=== PATIENT | male | born 1960 | race Caucasian/White ===

== ENCOUNTER 2025-01-06 17:57 | Emergency (ER) | payer MEDICARE ==
[2025-01-06 18:24] VITALS: BP 149/90; PULSE 78; RESP 20; TEMP 98.4; O2SAT 98
--- NOTE | 2025-01-06 18:40 | ERPHSYRPT ---
- History of Present Illness Time Seen by Provider: 01/06/25 18:36 Source: police Patient Subjective Stated Complaint: patient was picked up by PD for driving Triage Nursing Assessment: patient brought be law enforcement to get medically cleared, patient is alert and oriented x2 patient knows we are in a hospital but unsure of what day of the week it is and is confused whether he is in [place] or [place]. pupils [place], face is flushed , patient is unsteady ga it. Physician History: Brought by police department for medical clearance, the patient was pulled over by police and Breathalyzer had revealed an alcohol around 300 Timing/Duration: today Severity: moderate Modifying Factors: Improves With: medication Home Medications: Apixaban [Eliquis] 1 tab PO BID 01/06/25 [History] Primidone 50 MG [Mysoline 50Mg] 50 mg PO DAILY 01/06/25 [History] Hx Tetanus, Diphtheria Vaccination/Date Given: (unknown) Hx Influenza Vaccination/Date Given: (unknown) Hx Pneumococcal Vaccination/Date Given: (unknown) Immunizations Up to Date: (unknown) Travel Risk - International Travel Have you traveled outside of the country in past 3 weeks: No - Emerging Infectious Disease Are you exhibiting symptoms associated with any current EIDs: No - Past Medical History Pertinent Past Medical History: Yes Neurological History: No Pertinent History Cardiac History: Deep Vein Thrombosis, High Cholesterol Respiratory History: No Pertinent History, Pulmonary Embolism Endocrine Medical History: No Pertinent History Other Medical History: 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 HX OF MOUTH CANCER (RADIATION ~4 YEARS AGO) - Past Surgical History Past Surgical History: (unknown) - Social History Smoking Status: Former smoker Drug Use: none - Social Determinants of Health Will the patient participate in the screening: Declined to provide - Nursing Vital Signs Nursing Vital Signs: Initial Vital Signs Temperature 98.4 F 01/06/25 18:19 Pulse Rate 78 01/06/25 18:19 Respiratory Rate 20 01/06/25 18:19 Blood Pressure 149/90 01/06/25 18:19 O2 Sat by Pulse Oximetry 98 01/06/25 18:19 Pain Scale Pain Intensity 9 - Physical Exam General Appearance: no apparent distress, alert Eye Exam: PERRL/EOMI, eyes nml inspection Ears, Nose, Throat Exam: normal ENT inspection, TMs normal, pharynx normal, moist mucous membranes Neck Exam: normal inspection, non-tender, supple Respiratory Exam: normal breath sounds, lungs clear Cardiovascular Exam: regular rate/rhythm Gastrointestinal/Abdomen Exam: soft, normal bowel sounds Neurologic Exam: alert, cooperative, fund director II-XII nml as tested Skin Exam: normal color, warm, dry SpO2: 98 - Progress Progress Note: 01/06/25 18:38 Examination is consistent with his intoxication, he is medically cleared to go with police - Departure Departure Disposition: Care Home/Retirement Clinical Impression: Alcohol intoxication Qualifiers: Complication of substance-induced condition: uncomplicated Qualified Code(s): F10.920 - Alcohol use, unspecified with intoxication, uncomplicated Condition: Stable Critical Care Time: No Referrals: DOCTOR,NO FAMILY [Primary Care Provider, UNKNOWN] - Follow up/PCP as directed JOHNY ABDI [ACTIVE STAFF, FAMILY PRACTICE] - Follow up other Referral Note: 1-2 weeks
== END 2025-01-06 18:54 ==
LOC: ED 17:57
DX: F10.920 Alcohol use, unspecified with intoxication, uncomplicated (principal); Z79.01 Long term (current) use of anticoagulants; Z79.899 Other long term (current) drug therapy